=== PATIENT | female | born 1950 | race Caucasian/White ===

== ENCOUNTER 2023-09-16 20:15 | Emergency (ER) | payer MEDICARE, OTHER ==
[~2023-09-16] VITALS: Ht 165.1 cm; Wt 80.2 kg
[2023-09-16 22:09] LABS: URINE COLOR YELLOW
[2023-09-16 22:15] LABS: URINE APPEARANCE HAZY; URINE BILIRUBIN NEGATIVE (NEGATIVE); URINE BLOOD NEGATIVE (NEGATIVE); URINE GLUCOSE NEGATIVE (NEGATIVE); URINE KETONE NEGATIVE (NEGATIVE); URINE LEUKOCYTE ESTERASE 1+ (NEGATIVE); URINE NITRATE POSITIVE (NEGATIVE); URINE PROTEIN(semi-quant) TRACE (NEGATIVE); URINE UROBILINOGEN NORMAL (NORMAL)
[2023-09-16 22:20] LABS: URINE WBC 31-50 /hpf (0-3)
[2023-09-16 22:21] LABS: URINE MUCUS PRESENT (NOT PRESENT)
[2023-09-16] MEDS ORDERED: CEFDINIR300 MG PO (22:30)
[2023-09-16 22:57] VITALS: BP 138/88
== END 2023-09-16 23:00 | disposition home or self-care (01) ==
LOC: ED 20:15
PROVIDERS: Family Medicine
DX: N39.0 Urinary tract infection, site not specified (principal); E11.42 Type 2 diabetes mellitus with diabetic polyneuropathy; Z88.2 Allergy status to sulfonamides
CPT/HCPCS: J0696

== ENCOUNTER → 2024-06-27 | Outpatient (CLI) | payer MEDICARE, OTHER ==
[~2024-06-27] MED LIST: BUSPIRONE5 MG PO; CEFDINIR300 MG PO; DULOXETINE30 MG PO; GABAPENTIN TAB600 MG PO; LEVOTHYROXINE100 MC1 PO; LOVASTATIN40 M1 PO; MECLIZINE PO; METFORMIN ER500 MG PO; PHENERGAN 25 TA25 MG PO; TOPIRAMATE50 MG PO; TRULICITY1.5 MG/0.5 SC
== END ==
LOC: RAD 12:32
DX: M17.12 Unilateral primary osteoarthritis, left knee (principal)